=== PATIENT | male | born 1970 | race Caucasian/White ===

== ENCOUNTER 2024-09-15 22:12 | Emergency (ER) | payer BC ==
[~2024-09-15] VITALS: Ht 185.4 cm; Wt 99.8 kg
[~2024-09-15 22:12] MED LIST: GABA300; MELO7.5 PO; TRAACE PO
[2024-09-15 22:24] LABS: BASOPHILS ABSOLUTE AUTO 0.06 K/mm3 (0.00-0.23); BASOPHILS PERCENT AUTO 1 % (0-2); EOSINOPHILS ABSOLUTE AUTO 0.35 K/mm3 (0.00-0.68); EOSINOPHILS PERCENT AUTO 3 % (0-6); Hematocrit 45.1 % (37.0-53.0); Hemoglobin 15.3 g/dL (13.5-17.5); IMMATURE GRAN ABSOLUTE AUTO 0.03 K/mm3 (0.00-0.10); IMMATURE GRAN PERCENT AUTO 0 % (0-1); LYMPHOCYTES ABSOLUTE AUTO 3.70 K/mm3 (0.84-5.20); LYMPHOCYTES PERCENT AUTO 32 % (21-46); MONOCYTES ABSOLUTE AUTO 1.03 K/mm3 (0.16-1.47); MONOCYTES PERCENT AUTO 9 % (4-13); Mean Corpuscular HGB Conc 33.9 g/dL (31.5-36.5); Mean Corpuscular Volume 96 fL (80-100); NEUTROPHILS ABSOLUTE AUTO 6.31 K/mm3 (1.96-9.15); NEUTROPHILS PERCENT AUTO 55 % (41-73); NRBC ABSOLUTE 0.00 K/mm3 (0.00-0.02); NRBC Auto 0.0 /100 WBC (0.0-0.2); Platelet Count 287 K/mm3 (150-400); RDW Coefficient Variation 12.1 % (11.7-14.2); RDW Standard Deviation 42.6 fL (35.1-46.3)
[2024-09-15 22:41] LABS: Prothrombin Time Results 10.5 Sec (9.7-11.5)
[2024-09-15] MEDS ORDERED: Tenecteplase 50 MG / Kit IV ONE (22:45)
[2024-09-15 22:51] LABS: Ethanol (Alcohol), Blood, Med <3 mg/dL
[2024-09-15 22:52] LABS: Alanine Aminotransfer (ALT/SGP 37 U/L (12-78); Albumin, Blood 3.5 g/dL (3.4-5.0); Albumin/Globulin Ratio 0.9 (0.8-1.8); Anion Gap 7 mmol/L (3-11); Aspartate Aminotrans (AST/SGOT 26 U/L (12-37); Bilirubin, Total 0.3 mg/dL (0.1-1.0); Blood Urea Nitrogen 15 mg/dL (8-24); CO2, Blood 29 mmol/L (21-32); Calcium, Blood 8.8 mg/dL (8.5-10.1); Chloride, Blood 108 mmol/L (98-108); Creatinine, Blood 1.26 mg/dL (0.60-1.20); Globulin, Blood 4.0 g/dL (2.2-4.0); Glucose, Blood 113 mg/dL (70-99); Potassium, Blood 3.9 mmol/L (3.5-5.5); Sodium, Blood 140 mmol/L (136-145); Total Protein, Blood 7.5 g/dL (6.4-8.2)
[2024-09-15 23:50] VITALS: BP 160/96
== END 2024-09-16 00:12 | disposition short-term general hospital (02) ==
LOC: ER 22:12
PROVIDERS: Student in an Organized Health Care Education/Training Program
DX: I66.02 Occlusion and stenosis of left middle cerebral artery (principal); I65.22 Occlusion and stenosis of left carotid artery; F17.200 Nicotine dependence, unspecified, uncomplicated; R29.716 NIHSS score 16; Z79.899 Other long term (current) drug therapy
CPT/HCPCS: 70450; 70496; 70498; 71045; 80053; 80320; 82947; 85025; 85610; 85730; 93005; 93010; 96374-59; 99285-25; J3101; Q9967